=== PATIENT | male | born 1965 | race Caucasian/White ===

== ENCOUNTER 2017-09-01 17:35 | Emergency (ER) | END 2017-09-01 18:37 | disposition home or self-care (01) ==

== ENCOUNTER 2019-01-05 19:41 | Emergency (ER) | payer SELFPAY ==
[~2019-01-05] VITALS: Ht 167.6 cm; Wt 79.2 kg
[~2019-01-05 19:41] MED LIST: AZIT250T PO; BENZ-6 PO
[2019-01-05 20:02] VITALS: Ht 167.6 cm; Wt 79.2 kg
[2019-01-05] MEDS ORDERED: KETOROLAC 30 MG INJ IM STA (20:30)
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
[2019-01-05] MEDS ORDERED: MECL12.574 PO (21:03)
[2019-01-05] MEDS ORDERED: ACET500C5 PO (21:03)
[2019-01-05 21:40] VITALS: BP 153/81; PULSE 72; RESP 19
--- NOTE | 2019-01-09 15:07 | RADRPT ---
Vent Rate: 69 bpm RR Interval: 0 msec [place] Interval: 162 msec QRS Duration: 80 msec QT Interval: 388 msec QTC Interval: 415 msec P-R-T [place]: 73 - 55 - 65 degrees Normal sinus rhythm Normal ECG Electronically Signed By: [facility]
== END 2019-01-05 21:41 | disposition home or self-care (01) ==
LOC: FTE 19:41
DX: R51 Headache (principal); R42 Dizziness and giddiness
CPT/HCPCS: 80053; 84484; 85025; 93005; 96372; 99284; J1885